=== PATIENT | female | born 1965 | race Caucasian/White ===

== ENCOUNTER 2018-02-06 09:47 | Emergency (ER) | payer SELFPAY ==
[2018-02-06 09:57] VITALS: BP 107/77
[2018-02-06] MEDS ORDERED: ONDANSETRON HCL INJ/PF 4 MG/2 ML SDV IV ONE (10:19)
[2018-02-06] MEDS ORDERED: NORMAL SALINE 1000 ML 1,000 ML IV PRN (10:19)
--- NOTE | 2018-02-06 10:25 | ER Document Report ---
ED Medical Screen (RME) - General Chief Complaint: Abdominal Pain Stated Complaint: ABDOMINAL PAIN Time Seen by Provider: 02/06/18 10:17 Mode of Arrival: Ambulatory Information source: Patient TRAVEL OUTSIDE OF THE [place] IN LAST 30 DAYS: No - HPI Notes: 02/06/18 10:20 52 yr old female presents for complaints of LUQ, LLQ, flank pain that has been going on for weeks, has become progressively worse. pain 10/10, sharp and shooting. reports n/v/d. Reports substernal CP, denies radiation of pain. Denies any sob. reports hx of anxiety and panic attacks. no hx off cardiac disease. denies fevers and chills. hx of mental health history, has been out of her meds since she moved her x 2 months ago. I have greeted and performed a rapid initial assessment of this patient. A comprehensive ED assessment and evaluation of the patient, analysis of test results and completion of medical decision making process will be conducted by an additional ED providers. - Related Data Allergies/Adverse Reactions: No Known Allergies Allergy (Unverified 02/06/18 09:48) Physical Exam - Vital signs Vitals: Temp Pulse Resp BP Pulse Ox 97.7 F 76 18 107/77 97 02/06/18 09:56 02/06/18 09:56 02/06/18 09:56 02/06/18 09:56 02/06/18 09:56 - Respiratory Respiratory status: No respiratory distress Chest status: Nontender Breath sounds: Normal Chest palpation: Normal - Cardiovascular Rhythm: Regular Heart sounds: Normal auscultation Normal capillary refill: Yes - Abdominal Tenderness: Tender - LUQ, LLQ tenderness, noted rebound pain. Course - Vital Signs Vital signs: Temp Pulse Resp BP Pulse Ox 97.7 F 76 18 107/77 97 02/06/18 09:56 02/06/18 09:56 02/06/18 09:56 02/06/18 09:56 02/06/18 09:56
[2018-02-06] MEDS ORDERED: MORPHINE SULFATE 10 MG/ML INJ IV ONE (10:47)
[2018-02-06] MEDS ORDERED: KETOROLAC TROMETHAMINE INJ/PF 30 MG/1 ML SDV IV ONE (10:47)
--- NOTE | 2018-02-06 10:47 | ER Document Report ---
ED GI/ - General Chief Complaint: Abdominal Pain Stated Complaint: ABDOMINAL PAIN Time Seen by Provider: 02/06/18 10:17 Mode of Arrival: Ambulatory Notes: The patient is a 52-year-old female, past medical history diverticulitis, ADHD, anxiety, presents with worsening left-sided abdominal pain, similar to her prior diverticulitis episodes. She recently moved to [place] from [place] and has an appointment with a new primary care physician in 3 weeks. She is out of her gabapentin, levothyroxine, Adderall, and Xanax and is requesting a refill. Patient denies nausea, vomiting, fevers, blood in her stool, dysuria, hematuria, rash, chest pain or shortness of breath. TRAVEL OUTSIDE OF THE [place] IN LAST 30 DAYS: No - Related Data Allergies/Adverse Reactions: No Known Allergies Allergy (Unverified 02/06/18 09:48) Past Medical History - General Information source: Patient - Social History Smoking Status: Unknown if Ever Smoked Family History: Reviewed & Not Pertinent Review of Systems - Review of Systems Notes: REVIEW OF SYSTEMS: CONSTITUTIONAL: -fevers, -chills EENT: -eye pain, -difficulty swallowing, -nasal congestion CARDIOVASCULAR: -chest pain, -syncope. RESPIRATORY: -cough, -SOB GASTROINTESTINAL: +abdominal pain, -nausea, -vomiting, -diarrhea GENITOURINARY: -dysuria, -hematuria MUSCULOSKELETAL: -back pain, -neck pain SKIN: -rash or skin lesions. HEMATOLOGIC: -easy bruising or bleeding. LYMPHATIC: -swollen, enlarged glands. NEUROLOGICAL: -altered mental status or loss of consciousness, -headache, - neurologic symptoms PSYCHIATRIC: +anxiety, -depression. ALL OTHER SYSTEMS REVIEWED AND NEGATIVE. Physical Exam - Vital signs Vitals: Temp Pulse Resp BP Pulse Ox 97.7 F 76 18 107/77 97 02/06/18 09:56 02/06/18 09:56 02/06/18 09:56 02/06/18 09:56 02/06/18 09:56 - Notes Notes: PHYSICAL EXAMINATION: GENERAL: Well-appearing, well-nourished and in no acute distress. HEAD: Atraumatic, normocephalic. EYES: Pupils equal round and reactive to light, extraocular movements intact, sclera anicteric, conjunctiva are normal. ENT: nares patent, oropharynx clear without exudates. Moist mucous membranes. NECK: Normal range of motion, supple without lymphadenopathy LUNGS: Breath sounds clear to auscultation bilaterally and equal. No wheezes rales or rhonchi. HEART: Regular rate and rhythm without murmurs ABDOMEN: Soft, mild LUQ and LLQ tenderness, normoactive bowel sounds. No guarding, no rebound. No masses appreciated. EXTREMITIES: Normal range of motion, no pitting or edema. No cyanosis. NEUROLOGICAL: Cranial nerves grossly intact. Normal speech, normal gait. Normal sensory and motor exams. PSYCH: Normal mood, normal affect. Mildly anxious. SKIN: Warm, Dry, normal turgor, no rashes or lesions noted. Course - Re-evaluation Re-evalutation: Patient's blood work, urine and CT pelvis do not show any signs of emergent conditions at this time. Vital signs are normal. Patient is requesting a refill of her Xanax and Adderall, but she does not have the bottles and there are no records of her taking Xanax or Adderall. She has an appointment with primary care physician in 3 weeks. Told her that I am unable to fill these medications for her. She has no signs of benzodiazepine withdrawal at this time. Patient became angry, ripped out her IV and walked out before she received her discharge papers or scripts. - Vital Signs Vital signs: Temp Pulse Resp BP Pulse Ox 97.7 F 76 18 107/77 97 02/06/18 09:56 02/06/18 09:56 02/06/18 09:56 02/06/18 09:56 02/06/18 09:56 - Laboratory Result Diagrams: 02/06/18 11:55 02/06/18 12:16 Laboratory results interpreted by me: 02/06/18 10:30 Urine Blood MODERATE H - Diagnostic Test Radiology reviewed: Image reviewed, Reports reviewed Radiology results interpreted by me: CT A/P: Post cholecystectomy, appendectomy, hysterectomy. Few colonic diverticuli without CT signs of acute diverticulitis. No CT signs of bowel obstruction or free intraperitoneal air/free fluid. Discharge - Discharge Clinical Impression: Drug-seeking behavior Abdominal pain Qualifiers: Abdominal location: unspecified location Qualified Code(s): R10.9 - Unspecified abdominal pain Condition: Stable Disposition: HOME, SELF-CARE Additional Instructions: Your CAT scan shows your known diverticula, but no evidence of infection of these diverticula. Take your gabapentin and Synthroid as directed. Your primary care physician will refill your Xanax and Adderall. ABDOMINAL PAIN: There are many causes of abdominal pain. Pain can mean a serious problem requiring surgery (such as appendicitis). It can also be an innocent problem that goes away on its own (such as a viral infection). Often, time must pass to determine the cause of pain. The physician does not feel that hospitalization is necessary, at present. Things may change within the next 24 hours. Call the doctor or come back for re- examination if any problems occur, such as: (1) Pain that becomes more severe, steady, or becomes concentrated in one specific area. Also, pain that is more severe with movement or coughing. (2) Vomiting that persists or becomes more frequent. (3) Blood in the vomitus, urine, or bowel movements. Blood in the stool may have a tarry or black appearance. (4) Shaking chills or fever greater than 100 degrees F. (5) The abdomen becomes more distended or swollen. (6) Bowel movements cease. (7) Failure to improve as expected. NORMAL EXAM AND WORKUP: At this time, your examination and workup show no significant abnormality. No significant abnormal physical findings are noted. All laboratory, EKG, and imaging (x-ray, CT scans, ultrasound) studies that were ordered show no significant abnormality. Although your examination and all studies that were ordered showed no significant abnormal finding, there are no examinations and no studies that are 100% accurate. There is always the possibility that some abnormality could exist and not be detected with physical examination or within the limits and capabilities of laboratory and other studies. You should return or follow up as you were instructed on your visit today for further evaluation if your symptoms do not resolve. FOLLOW-UP CARE: If you have been referred to a physician for follow-up care, call the physician s office for an appointment as you were instructed or within the next two days. If you experience worsening or a significant change in your symptoms, notify the physician immediately or return to the Emergency Department at any time for re-evaluation. Prescriptions: Gabapentin 300 mg PO TID 21 Days capsule Levothyroxine Sodium [Synthroid 0.025 mg Tablet] 25 mcg PO DAILY #21 tablet Referrals: IESHA KILPATRICK MD [ACTIVE STAFF] - Follow up as needed
[2018-02-06 10:54] LABS: APPEARANCE,URINE CLEAR; BILIRUBIN,URINE NEGATIVE (NEGATIVE); COLOR,URINE YELLOW; GLUCOSE, URINE NEGATIVE (NEGATIVE); KETONES,URINE NEGATIVE (NEGATIVE); LEUKOCYTE ESTERASE,URINE NEGATIVE (NEGATIVE); NITRITE,URINE NEGATIVE (NEGATIVE); PROTEIN,URINE NEGATIVE (NEGATIVE); URINE SPECIFIC GRAVITY 1.017; UROBILINOGEN,URINE NEGATIVE mg/dL (<2.0)
[2018-02-06 12:07] LABS: ABSOLUTE BASOPHILS # (AUTO) 0.1 10^3/uL (0.0-0.2); ABSOLUTE EOSINOPHILS # (AUTO) 0.3 10^3/uL (0.0-0.6); ABSOLUTE LYMPHOCYTES (AUTO) 2.4 10^3/uL (0.5-4.7); ABSOLUTE MONOCYTES (AUTO) 0.4 10^3/uL (0.1-1.4); ABSOLUTE NEUT (AUTO) 4.8 10^3/uL (1.7-8.2); BASOPHILS % (AUTO) 0.7 % (0-2); EOSINOPHILS % (AUTO) 4.2 % (0-6); HEMATOCRIT 41.6 % (36.0-47.0); HEMOGLOBIN 13.9 g/dL (12.0-15.5); LYMPHOCYTES % (AUTO) 30.3 % (13-45); MEAN CORPUSCULAR HEMOGLOBIN 30.2 pg (27.0-33.4); MEAN CORPUSCULAR HGB CONC 33.5 g/dL (32.0-36.0); MEAN CORPUSCULAR VOLUME 90 fl (80-97); MONOCYTES % (AUTO) 5.6 % (3-13); PLATELET COUNT 160 10^3/uL (150-450); RED BLOOD COUNT 4.61 10^6/uL (3.72-5.28); RED CELL DISTRIBUTION WIDTH 12.8 % (11.5-14.0); SEGMENTED NEUTROPHILS % (AUTO) 59.2 % (42-78); TOTAL CELLS COUNTED % (AUTO) 100 %
[2018-02-06 12:32] LABS: ALANINE AMINOTRANSFERASE 45 U/L (9-52); ALBUMIN 4.4 g/dL (3.5-5.0); ALKALINE PHOSPHATASE 88 U/L (38-126); ANION GAP 11 (5-19); ASPARTATE AMINO TRANSFERASE 23 U/L (14-36); BILIRUBIN,DIRECT 0.1 mg/dL (0.0-0.4); BILIRUBIN,TOTAL 0.3 mg/dL (0.2-1.3); BLOOD UREA NITROGEN 11 mg/dL (7-20); CALCIUM 9.6 mg/dL (8.4-10.2); CARBON DIOXIDE 25 mmol/L (22-30); CHLORIDE 105 mmol/L (98-107); GLUCOSE 94 mg/dL (75-110); LIPASE 72.7 U/L (23-300); POTASSIUM 4.1 mmol/L (3.6-5.0); TOTAL PROTEIN 6.7 g/dL (6.3-8.2)
--- NOTE | 2018-02-06 13:58 | RADIOLOGY REPORT (SQ) ---
EXAM DESCRIPTION: CT ABD/PELVIS WITH IV ORAL COMPLETED DATE/TIME: 02/06/2018 1:40 pm REASON FOR STUDY: LUQ and LLQ abd pain COMPARISON: None. TECHNIQUE: CT scan of the abdomen and pelvis performed using helical scanning technique with dynamic intravenous contrast injection. No oral contrast. Images reviewed with lung, soft tissue, and bone windows. Reconstructed coronal and sagittal MPR images reviewed. Delayed images for evaluation of the urinary system also acquired. All images stored on PACS. All CT scanners at this facility use dose modulation, iterative reconstruction, and/or weight based d osing when appropriate to reduce radiation dose to as low as reasonably achievable (ALARA). [facility]: Dose Right [facility]: CareDose [facility]: Dose Right [facility]: Teradose 4D [facility]: VideoJax CONTRAST TYPE AND DOSE: contrast/concentration: Isovue 370.00 mg/ml; Total Contrast Delivered: 100.0 ml; Total Saline Delivered: 44.3 ml RENAL FUNCTION: CREATININE 0.57 RADIATION DOSE: CT Rad equipment meets quality standard of care and radiation dose reduction techniq ues were employed. CTDIvol: 20.4 - 21.0 mGy. DLP: 2381 mGy-cm.. LIMITATIONS: None FINDINGS: LOWER CHEST: Lung bases are clear. Small hiatal hernia. LIVER: Normal size. No masses. No dilated ducts. SPLEEN: Normal size. No focal lesions. PANCREAS: No masses. No significant calcifications. No adjacent inflammation or peripancreatic fluid collections. Pancreatic duct not dilated. GALLBLADDER: Surgically absent ADRENAL GLANDS: No significant masses or asymmetry. RIGHT KIDNEY AND URETER: No solid masses. No significant calcifications. No hydronephrosis or hyd roureter. LEFT KIDNEY AND URETER: No solid masses. No significant calcifications. No hydronephrosis or hydr oureter. AORTA AND VESSELS: No aneurysm. No dissection. Renal arteries, SMA, celiac without stenosis. RETROPERITONEUM: No retroperitoneal adenopathy, hemorrhage or masses. BOWEL AND PERITONEAL CAVITY: No gross evidence of bowel obstruction. No free intraperitoneal air or fluid. There are descending and sigmoid colon diverticulitis, and few right colon diverticuli withou t CT signs of acute diverticulitis. APPENDIX: Surgically absent PELVIS: No mass. No free fluid. Normal bladder. Post hysterectomy ABDOMINAL WALL: No masses. No hernias. BONES: No significant or acute findings. OTHER: No other significant finding. IMPRESSION: Post cholecystectomy, appendectomy, hysterectomy. Few colonic diverticuli without CT signs of acute diverticulitis. No CT signs of bowel obstruction o r free intraperitoneal air/free fluid. TECHNICAL DOCUMENTATION: JOB ID: [id number] Quality ID # [id number]: Final reports with documentation of one or more dose reduction techniques (e.g., Au tomated exposure control, adjustment of the mA and/or kV according to patient size, use of iterative reconstruction technique) 2010 [employer]- All Rights Reserved Reading location - IP/workstation name: [facility]
--- NOTE | 2018-02-06 15:11 | EKG REPORT ---
SEVERITY:- NORMAL ECG - SINUS RHYTHM : Confirmed by: Marcy Estrella 06-Feb-2018 15:10:41
== END 2018-02-06 14:16 | disposition home or self-care (01) ==
LOC: ER 09:47
DX: R10.9 Unspecified abdominal pain (principal); Z76.5 Malingerer [conscious simulation]
CPT/HCPCS: 93005; 99284; 96361; 96374; 96375; 36415; 83690; 85025; 80053; 81001; 74177; 93010; J1885; J2405; J7030